=== PATIENT | male | born 1975 | race Caucasian/White ===

== ENCOUNTER 2021-02-09 22:10 | Emergency (ER) | payer OTHER ==
[~2021-02-09] VITALS: Ht 180.3 cm; Wt 84.3 kg
[2021-02-09 22:25] VITALS: BP 135/87
--- NOTE | 2021-02-09 22:46 | PHYS DOC ---
Adult General Chief Complaint Chief Complaint: BACK PAIN - NO INJURY HPI HPI Patient is a 45-year-old male with a past medical history significant for GERD who presents with a chief complaint of feeling like he has gas and some discomfort up behind his right shoulder blade. States that this feeling is in termittent, 4 out of 10 at its worst, 0 at its best, that has been going on for weeks. Cannot really identify any aggravating or alleviating factors. Denies any recent travel, traumas, fevers, chest pain, shortness of breath, abdominal pain, nausea, vomiting, diarrhea. Denies any dyspnea on exertion, orthopnea, PND or edema. Denies any cardiac history or family history of cardiac history of his age. States he is eating and drinking normally otherwise. States he is making urine and stool otherwise normal for him. States he is in the and here for an exercise and would usually go to his primary care for this but does not have one here and decided to come over. States he has been diagnosed with gastritis before as well to. States he had a EGD this year that was normal. Review of Systems Review of Systems Review of systems otherwise unremarkable except noted in HPI Physical Exam Physical Exam Constitutional: Well developed, well nourished, no acute distress, non-toxic appearance. [] HENT: Normocephalic, atraumatic, bilateral external ears normal, oropharynx moist, no oral exudates, nose normal. [] Eyes: conjunctiva normal, no discharge. [] Neck: Normal range of motion, no tenderness, supple, no stridor. [] Cardiovascular:Heart rate regular rhythm, no murmur [] Lungs & Thorax: Bilateral breath sounds clear to auscultation [] Abdomen: soft, no tenderness, no masses, no pulsatile masses. [] Skin: Warm, dry, no erythema, no rash. [] Back: no CVA tenderness. [] Extremities: No tenderness, ROM intact, no edema. [] Neurologic: Alert and oriented X 3, no focal deficits noted. [] Psychologic: Affect normal, judgement normal, mood normal. [] EKG EKG [] Radiology/Procedures Radiology/Procedures [] Heart Score C/O Chest Pain: No Risk Factors: Risk Factors: DM, Current or recent (<one month) smoker, HTN, HLP, family hi story of CAD, obesity. Risk Scores: Risk Factors: DM, Current or recent (<one month) smoker, HTN, HLP, family history of CAD, obesity. Course & Med Decision Making Course & Med Decision Making Patient is a 45-year-old male who presents with a chief complaint of GERD and gaseous distention Vital signs not concerning. Physical exam noted above. EKG normal and noted above. Chest x-ray normal. Patient actually otherwise asymptomatic here in the ED. Given GI cocktail. Discussed symptomatic control as well as a plan to control GERD as well as evaluate. Advised to follow-up in the morning with primary care physician and set up a follow-up as soon as you return for possible repeat EGD. Discussed diet for GERD, gastritis and esophagitis. Denies coming to the ED with new or concerning symptoms. Patient grateful, verbalized understanding and agree with plan of discharge. [] Dragon Disclaimer Dragon Disclaimer This electronic medical record was generated, in whole or in part, using a voice recognition dictation system. Departure Departure: Impression: Primary Impression: Heartburn Additional Impressions: Bloating History of gastroesophageal reflux (GERD) Disposition: HOME / SELF CARE / HOMELESS Condition: GOOD Referrals: NON,STAFF (PCP) KJ BLUE MD Patient Instructions: Diet for Gastroesophageal Reflux Disease, Adult, Gastritis, Adult, Gastroesophageal Reflux Disease, Adult Additional Instructions: Thank you for coming into the emergency department tonight and allowing us to take care of you. Please read the attached information carefully to go back over some of the things we discussed. Please adjusted diet accordingly as we discussed and as in the information. Please continue to take your [id number] ter heartburn medicine. You can add Tums 2 or 3 times daily with meals as well. Please call your primary care physician in the morning to update on your ED visit and set up a follow-up as soon as possible to discuss management of chronic GERD/esophagitis/gastritis and need for repeat EGD. Please come back with new or concerning symptoms as we discussed. Problem Qualifiers CONSTANCE RAMSEY MD Feb 09, 2021 22:46
[2021-02-09] MEDS ORDERED: LIDO:MAALOX 1:1 20 ML SINGLE DOSE. PO ONE (23:00)
--- NOTE | 2021-02-09 23:09 | EKG ---
[address] [address] Test Date: 2021-02-09 Test Time: 22:44:53 Pat Name: ELIAS SALDIVAR Department: Room: Gender: M [employer]: [employer] : 1975 Requested By: CONSTANCE RAMSEY Order Number: [id number] Reading MD: Asael Cota Measurements Intervals [place] Rate: 65 P: 53 CT: 148 QRS: 52 QRSD: 88 T: 25 QT: 386 QTc: 402 Interpretive Statements SINUS RHYTHM Electronically Signed On 02-11-2021 16:04:00 CDT by Asael Cota
--- NOTE | 2021-02-10 00:34 | RAD ---
EXAM: XR CHEST 1V 02/09/2021 10:46 PM CLINICAL INDICATION: Scapular discomfort COMPARISON: None TECHNIQUE: AP upright view of the chest FINDINGS: The heart and mediastinum are normal. Lungs are well-expanded and clear. No consolidatio n, pleural effusion, or pneumothorax. Pulmonary vascularity is normal. No acute osseous abnormality. IMPRESSION: Normal chest radiograph. Electronically signed by: Jacquie Flores MD (02/10/2021 12:31 AM) [facility]
== END 2021-02-09 23:07 | disposition home or self-care (01) ==
LOC: ER 22:10
DX: R12 Heartburn (principal); R14.0 Abdominal distension (gaseous); K21.9 Gastro-esophageal reflux disease without esophagitis
CPT/HCPCS: 71045; 93005; 99283